=== PATIENT | female | born 1945 | race Hispanic/Latino ===

== ENCOUNTER 2018-11-13 17:03 | Emergency (ER) | payer OTHER ==
[~2018-11-13] VITALS: Ht 160 cm; Wt 99.3 kg
[~2018-11-13 17:03] MED LIST: CALCIUM 600 +1 EAC7 PO; FENOFIBRATE160 MG PO; FISH OIL 1,2001 EACH PO; GLIMEPIRIDE4 MG PO; LISINOPRIL-HCT1 EAC2 PO; METFORMIN HCL500 MG PO; PROGLITAZONE HCL PO; VITAMIN D-32000 UNIT PO
--- OUTSIDE RECORDS SUMMARY | 2018-11-13 17:06 | XMS REPORT | Summary of Care ---
Author Author [facility] [place] Organization [facility] [place] Address Unknown Phone Unavailable Encounter HQ Bienvenido_romy(FIN) [id number] Date(s): 01/16/18 - 01/16/18 [facility] [place] [address] [address] [phone] Encounter Diagnosis Contusion of right knee, initial encounter (Final) - 01/21/18 Contusion of lower back and pelvis, initial encounter (Final) - Sacrococcygeal disorders, not elsewhere classified (Final) - Discharge Disposition: Home or Self Care Attending Physician: Marbin Szymanski DO Referring Physician: Marbin Szymanski DO Vital Signs No data available for this section Problem List No data available for this section Allergies, Adverse Reactions, Alerts No data available for this section Medications No data available for this section Results No data available for this section Immunizations No data available for this section Procedures No data available for this section Social History No data available for this section Assessment and Plan No data available for this section
--- OUTSIDE RECORDS SUMMARY | 2018-11-13 17:06 | XMS REPORT | Continuity of Care Document ---
Author Author [employer] Address Unknown Phone Unavailable Care Team Providers Care Dermatology Teacher Name Role Phone Xelerated Unavailable Unavailable Problems Problem Status Onset Date Classification Date Reported Comments Source Cough 03/22/2018 09/25/2018 [facility] [place] R06.02 - SHORTNESS OF BREATH Active 03/07/2018 [facility] [place] Contusion of lower back and pelvis, subsequent encounter 02/23/2018 09/06/2018 [facility] [place] S30.0XXD - CONTUSION OF LOWER BACK AND P Active 02/07/2018 [facility] [place] Contusion of right knee, initial encounter 01/22/2018 08/06/2018 [facility] [place] R22.32 - LOCALIZED SWELLING, MASS AND L Active 06/27/2017 [facility] [place] DX:569.84 ANGIODYSPLASIA OF INTESTINE / Active 09/11/2012 [place] Contusion of lower back and pelvis, initial encounter 08/06/2018 [facility] [place] Sacrococcygeal disorders, not elsewhere classified 08/06/2018 [facility] [place] Unspecified fall, subsequent encounter 09/06/2018 [facility] [place] Sacroiliitis, not elsewhere classified 09/06/2018 [facility] [place] Trochanteric bursitis, right hip 09/06/2018 [facility] [place] Other intervertebral disc degeneration, lumbosacral region 09/06/2018 [facility] [place] Other intervertebral disc degeneration, lumbar region 09/06/2018 [facility] [place] Shortness of breath 09/25/2018 [facility] [place] Medications No Data Provided for This Section Allergies, Adverse Reactions, Alerts No Known Medication Allergies Immunizations No Data Provided for This Section Results No Data Provided for This Section Pathology Reports No Data Provided for This Section Diagnostic Reports Report Value Date Source Foot series DX Exam: Ankle 3 views DX, Foot series DX, left Reason for Exam: - M79.672 Pain in left foot; left ankle pain Comparison Exam: X-ray 07/15/2018 Discussion: No acute bony abnormalities identified. 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 Hallux valgus deviation is seen with the HVA measuring approximately 34 degrees. Moderate osteoarthritis seen within the medial ankle mortise. No suspicious osteoblastic or osteolytic lesions seen to suggest pathologic involvement. Moderate-sized inferior calcaneal enthesophyte. Impression: 1. No acute bony abnormalities identified. 10/30/2018 JAYANT Esposito Ankle 3 views DX Exam: Ankle 3 views DX, Foot series DX, left Reason for Exam: - M79.672 Pain in left foot; left ankle pain Comparison Exam: X-ray 07/15/2018 Discussion: No acute bony abnormalities identified. 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 Hallux valgus deviation is seen with the HVA measuring approximately 34 degrees. Moderate osteoarthritis seen within the medial ankle mortise. No suspicious osteoblastic or osteolytic lesions seen to suggest pathologic involvement. Moderate-sized inferior calcaneal enthesophyte. Impression: 1. No acute bony abnormalities identified. 10/30/2018 JAYANT Espos[place] Spine lumbar wo contrast MRI Exam: MRI Lumbar spine without contrast Reason for Exam: M54.16 Radiculopathy, lumbar region - M54.16 Radiculopathy, lumbar region Comparison Exam: None Technique: Multiplanar and multisequence imaging was performed of the lumbar spine. T1 and T2 weighted images were obtained without injection of intravenous contrast. Discussion: No fractures or spondylolisthesis seen within the lumbar spine. The conus is located at the T12/L1 vertebral body level. No abnormal signal originating from the spinal cord. Visualized portions of the retroperitoneum are unremarkable. L1/L2: Intervertebral disc is within normal limits. The facet joints and ligamentum flavum are unremarkable. The neuroforamina appear patent. L2/L3: Moderate loss in disc height with cortical endplate erosive changes of L2 and L3. Broad-based posterior disc bulge is seen resulting in indentation of the thecal sac and mild central canal stenosis. Facet joints are unremarkable. These findings are resulting in moderate bilateral neural foraminal stenoses with impingement on the descending L3 nerve roots. L3/L4: Broad-based posterior disc bulge is seen resulting in indentation of the thecal sac and moderate central canal stenosis. Moderate bilateral facet joint arthropathy. Moderate bilateral neural from stenosis with abutment of the descending L4 nerve roots. L4/L5: Intervertebral disc is unremarkable. Advanced bilateral facet joint arthropathy. Mild bilateral neural foraminal stenoses. The exiting and descending nerve roots do not appear impinged. L5/S1: Intervertebral disc is within normal limits. The facet joints and ligamentum flavum are unremarkable. The neuroforamina appear patent. Impression: 1. Multilevel spondylosis as detailed above, most prominent at the L2/L3 level. 09/25/2018 JAYANT Esposito Foot series DX EXAM: Foot series DX HISTORY: - R22.42 Localized swelling, mass and lump, left lower limb; pain and swelling left foot COMPARISON: None 3 views of the left foot. FINDINGS: There is a bunion deformity of the great toe MTP joint with mild hallux valgus and moderate degenerative change. No fracture or dislocation is seen. There is moderate tibiotalar osteophyte formation. There is soft tissue swelling at the ankle. There is a healing nondisplaced fracture of the mid 5th metatarsal. IMPRESSION: Healing nondisplaced 5th metatarsal fracture. Degenerative change with flattening deformity of the great toe MTP joint. Plantar calcaneal spur. 07/15/2018 JAYANT Esposito Chest 2 views DX Exam: Two-view chest x-ray Reason for Exam: - R06.02 Shortness of breath;R05 Cough Comparison Exam: None Discussion: Cardiac silhouette is at the upper limits of normal for size. Both hemidiaphragms well visualized. No pulmonary edema or pleural effusions. No focal lung consolidations. Trachea is midline. No acute bony abnormalities. Impression: 1. No acute cardiopulmonary abnormalities. 03/07/2018 JAYANT Espos[place] Pelvis wo contrast MRI EXAMINATION: MRI of the pelvis without contrast HISTORY: S30.0XXD Contusion of lower back and pelvis, subsequent encounter; posterior pelvic pain/coccydynia status post fall on 01/16/2018; coccygeal fracture COMPARISON: Radiographs dated 01/16/2018 are reviewed. TECHNIQUE: Multiplanar, multisequence magnetic resonance images of the pelvis were obtained without contrast. FINDINGS: Bone: There is focal bone marrow edema and mild cortical offset within the region of the 1st coccygeal segment most consistent with a coccygeal fracture (series 6, images 25 through 27). There is also moderate bilateral sacroiliitis with substantial periarticular bone marrow edema and subcortical sclerosis (series 5, images 13 through 17). There is otherwise normal bone marrow signal intensity throughout the remainder of the visualized lower lumbar spine, sacrum, pelvis, and bilateral proximal femora. Muscles and Tendons: There is mild bilateral common hamstring origin tendinosis. The musculature of the pelvis including the piriformis muscles is normal and symmetric. Soft Tissues: There is mild right greater trochanteric bursitis. The sciatic nerves are normal and symmetric. There is a small sacral Tarlov cyst on the left at the level of S2. The sacral neuroforamina are patent. There is mild edema within the presacral soft tissues. Bilateral Hips: Within each hip, there is no gross intra-articular abnormality on large [id number] imaging. Other: The uterus is surgically absent. Visualized portions of the intraperitoneal pelvis are otherwise unremarkable. Visualized portions of the lower lumbar spine demonstrate L2-L3, L3-L4, and L5-S1 degenerative disc disease. IMPRESSION: 1. Focal bone marrow edema and mild cortical offset within the region of the 1st coccygeal segment most consistent with a coccygeal fracture, especially given the patient's history. There is also mild edema within the adjacent presacral soft tissues. 2. Moderate bilateral sacroiliitis with substantial periarticular bone marrow edema and subcortical sclerosis. 3. Mild right greater trochanteric bursitis. 4. Mild bilateral common hamstring origin tendinosis. 5. Visualized portions of the lower lumbar spine demonstrate L2-L3, L3-L4, and L5- S1 degenerative disc disease. There is also a small sacral Tarlov cyst on the left at the level of S2. 6. Status post hysterectomy. 02/16/2018 JAYANT Espos[facility] Spine coccyx DX EXAM: Spine coccyx DX DATE: 01/16/2018 10:54 AM FOREIGN LAW CONSULTANT . ORDERING PHYSICIAN: Marbin Szymanski DO CLINICAL INDICATION: - contusion cocyx; TECHNIQUE: AP and lateral views of the sacrum and coccyx COMPARISON: Unavailable FINDINGS: There is abrupt anterior angulation of the lower sacrum without definite cortical disruption. The coccyx is unremarkable. Soft tissues are grossly unremarkable. IMPRESSION: Abrupt anterior angulation of the lower sacrum without definite cortical breakthrough suggesting fracture of indeterminate chronicity. If indicated, MR assessment may be considered. 01/16/2018 JAYANT Esposito Knee 1-2 Views unilateral DX Exam: Right knee x-ray, 2 views Reason for Exam: - contusion right knee Comparison Exam: none Discussion: No fractures or dislocations are seen of the right knee. The joint spaces are preserved. No intraosseous lesions. No radiopaque foreign bodies. Impression: 1. No acute bony abnormalities seen within the right knee. 01/16/2018 JAYANT Esposito Chest w/wo contrast MRI CLINICAL HISTORY: R22.32 Localized swelling, mass and lump, left upper limb - R22.32 Localized swelling, mass and lump, left upper limb AGE: 72 years GENDER: Female TECHNIQUE: Multiplanar, multisequence MRI of the sternoclavicular joints was performed before and after IV administration of gadolinium based contrast. COMPARISON: None FINDINGS: Mild degenerative changes in the bilateral sternoclavicular joints, left greater the right. Trace left sternoclavicular joint effusion and synovitis. No evidence of ganglion cyst or mass lesion. Bone marrow signal is within normal limits without evidence of fracture. No bone marrow replacing lesions identified. Visualized portions of the inferior neck and upper thorax are unremarkable. IMPRESSION: Mild degenerative changes in the sternal clavicular joints, left greater then right. No MR correlate for patient's reported palpable mass. 06/28/2017 JAYANT Ashlie Bowel colon air contrast Air-contrast barium enema: COMPARISON: No priors CLINICAL HISTORY: Incomplete colonoscopy, screening for colon cancer. History of radiation therapy to the pelvis FINDINGS: The senior water resources engineer film reveals a nonobstructive bowel gas pattern. No abnormal calcifications or masses are visualized. Moderate amount of retained gas is noted in the colon Air and barium were instilled into the rectum in a retrograde fashion to the level of the cecum. There is reflux noted into the appendix. Evaluation is limited due to retained stool particularly in the descending colon. There is mild narrowing noted in the sigmoid colon near its junction with the descending colon. These changes may be related to spasm or might even reflect changes from prior radiation therapy. Neoplastic process considered less likely but correlation with endoscopy performed earlier in the day is recommended. No obstructing mass lesions are visualized. The colon demonstrates a normal haustral pattern. No significant mucosal abnormality is noted. The presacral space is within normal limits. IMPRESSION: Evaluate mildly limited particularly in the descending colon due to retained stool. Mild narrowing of the sigmoid colon near its junction with the descending colon. Please see discussion above. Fluoroscopy Time: 1.3 minutes SL:13 09/11/2012 [facility] Consultation Notes No Data Provided for This Section Discharge Summaries No Data Provided for This Section History and Physicals No Data Provided for This Section Vital Signs No Data Provided for This Section Encounters Location Location Details Encounter Type Encounter Number Reason For Visit Attending Provider ADM Date DC Date Status Source [facility] Outpatient [id number] DX:569.84 ANGIODYSPLASIA OF INTESTINE / UNABLE TO COMPL PHILIPP BRAY 09/11/2012 Active [facility] [place] [facility] [id number] Darius Christina 06/28/2017 06/29/2017 [facility] [place] [facility] [id number] Marbin Szymanski 01/16/2018 01/17/2018 [facility] [place] [facility] [place] [facility] [id number] Marbin Szymanski 02/16/2018 02/17/2018 [facility] [place] [facility] [place] [facility] [id number] Marbin Szymanski 03/07/2018 03/08/2018 [facility] [place] [facility] [place] [facility] [id number] Marbin Szymanski 07/15/2018 07/16/2018 [facility] [place] [facility] [place] [facility] [id number] Marbin Szymanski 09/25/2018 09/26/2018 [facility] [place] [facility] [place] [facility] [id number] Marbin Szymanski 10/30/2018 10/31/2018 [facility] [place] Procedures No Data Provided for This Section Assessment and Plan No Data Provided for This Section Plan of Care No Data Provided for This Section Social History Social History Date Source No data available for this section 10/31/2018 [facility] [place] Family History No Data Provided for This Section Advance Directives No Data Provided for This Section Functional Status No Data Provided for This Section
--- OUTSIDE RECORDS SUMMARY | 2018-11-13 17:06 | XMS REPORT | Summary of Care ---
Author Author [facility] [place] Organization [facility] [place] Address Unknown Phone Unavailable Encounter HQ Encntr_alimarissa(FIN) [id number] Date(s): 10/30/18 - 10/30/18 [facility] [place] [address] [address] [phone] Discharge Disposition: Home or Self Care Attending [...]
--- OUTSIDE RECORDS SUMMARY | 2018-11-13 17:06 | XMS REPORT | Summary of Care ---
Author Author [facility] [place] Organization [facility] [place] Address Unknown Phone Unavailable Encounter HQ Encntr_alimarissa(FIN) [id number] Date(s): 09/25/18 - 09/25/18 [facility] [place] [address] [phone] Discharge Disposition: Home or Self Care Attending [...]
--- OUTSIDE RECORDS SUMMARY | 2018-11-13 17:06 | XMS REPORT | Summary of Care ---
Author Author [facility] [place] Organization [facility] [place] Address Unknown Phone Unavailable Encounter HQ Ermias(FIN) [id number] Date(s): 02/16/18 - 02/16/18 [facility] [place] [address] [phone] Encounter Diagnosis Contusion of lower back and pelvis, subsequent encounter (Final) - 02/22/18 Unspecified fall, subsequent encounter (Final) - Sacroiliitis, not elsewhere classified (Final) - Trochanteric bursitis, right hip (Final) - Other intervertebral disc degeneration, lumbosacral region (Final) - Other intervertebral disc degeneration, lumbar region (Final) - Discharge Disposition: Home or Self [...]
--- OUTSIDE RECORDS SUMMARY | 2018-11-13 17:06 | XMS REPORT | Summary of Care ---
Author Author [facility] [place] Organization [facility] [place] Address Unknown Phone Unavailable Encounter HQ Encntr_alimarissa(FIN) [id number] Date(s): 07/15/18 - 07/15/18 [facility] [place] [address] [place] [phone] [phone] Discharge Disposition: Home or Self Care Attending [...]
--- OUTSIDE RECORDS SUMMARY | 2018-11-13 17:06 | XMS REPORT | Summary of Care ---
Author Author [facility] [place] Organization [facility] [place] Address Unknown Phone Unavailable Encounter HQ Encntr_romy(FIN) [id number] Date(s): 06/28/17 - 06/28/17 [facility] [place] [address] [place] [phone] [phone] Discharge Disposition: Home or Self Care Attending Physician: Darius Christina MD Vital Signs No data available for this [...]
--- OUTSIDE RECORDS SUMMARY | 2018-11-13 17:06 | XMS REPORT | Summary of Care ---
Author Author [facility] [place] Organization [facility] [place] Address Unknown Phone Unavailable Encounter HQ Encntr_alias(FIN) [id number] Date(s): 03/07/18 - 03/07/18 [facility] [place] [address] [phone] Encounter Diagnosis Cough (Final) - 03/22/18 Shortness of breath (Final) - Discharge Disposition: Home or Self [...]
[2018-11-13 17:48] LABS: BASOPHILS # (AUTO) 0.1 (0.0-0.1); BASOPHILS % 0.6 % (0.0-1.0); EOSINOPHILS # (AUTO) 0.2 (0.0-0.4); EOSINOPHILS % 2.2 % (0.0-6.0); HEMOGLOBIN 12.9 g/dL (12.0-16.0); LYMPHOCYTES # (AUTO) 1.3 (1.0-3.2); LYMPHOCYTES % 15.4 % (18.0-39.1); MEAN CORPUSCULAR HEMOGLOBIN 29.5 pg (28-32); MEAN CORPUSCULAR HGB CONC 32.3 g/dL (31-35); MEAN CORPUSCULAR VOLUME 91.3 fL (81-99); MONOCYTES # (AUTO) 0.6 (0.2-0.8); MONOCYTES % 7.7 % (4.4-11.3); NEUTROPHILS % 73.6 % (38.7-80.0); PLATELET COUNT 275 x10e3/uL (140-360); RED BLOOD COUNT 4.38 x10e6/uL (3.6-5.1); RED CELL DISTRIBUTION WIDTH 15.4 % (11.7-14.4)
[2018-11-13 17:53] LABS: CLARITY,URINE CLOUDY (CLEAR); COLOR,URINE AMBER (YELLOW); LEUKOCYTE ESTERASE ,URINE TRACE (NEGATIVE); NITRITE,URINE NEGATIVE (NEGATIVE); PROTEIN,URINE DIPSTICK 2+ (NEGATIVE); URINE UROBILINOGEN 0.2 mg/dL (0.2 - 1)
[2018-11-13 17:54] LABS: BILIRUBIN,URINE NEGATIVE (NEGATIVE); INR 1.02; KETONES,URINE NEGATIVE (NEGATIVE); PROTHROMBIN TIME 13.9 seconds (11.9-14.5)
[2018-11-13 17:55] LABS: PARTIAL THROMBOPLASTIN TIME 34.6 seconds (23.8-35.5)
[2018-11-13 18:02] LABS: ALANINE AMINOTRANSFERASE 14 IU/L (0-55); ALBUMIN 3.9 g/dL (3.5-5.0); ALBUMIN/GLOBULIN RATIO 1.1 (0.8-2.0); ALKALINE PHOSPHATASE 90 IU/L (40-150); ANION GAP 14.9 mmol/L (8-16); BLOOD UREA NITROGEN 22 mg/dL (7-26); BUN/CREATININE RATIO 28 (6-25); CALCIUM 9.7 mg/dL (8.4-10.2); CARBON DIOXIDE 25 mmol/L (22-29); CHLORIDE 104 mmol/L (98-107); CREATINE KINASE 122 IU/L (29-168); CREATININE, SERUM 0.79 mg/dL (0.57-1.11); EST GLOMERULAR FILTRATION RATE > 60 ML/MIN (60-); GLUCOSE 146 mg/dL (74-118); POTASSIUM 3.9 mmol/L (3.5-5.1); SODIUM 140 mmol/L (136-145)
[2018-11-13] MEDS ORDERED: ONDANSETRON HCL INJ 2MG/ML 2ML 2 MG/ML VIAL IV ONE (18:05)
[2018-11-13] MEDS ORDERED: MORPHINE SULFATE 2 MG/ML SYR 1ML IV ONE (18:05)
[2018-11-13] MEDS ORDERED: SODIUM CHLORIDE 0.9% 1000ML 1,000 ML IV STA (18:05)
[2018-11-13 18:07] LABS: BACTERIA,URINE FEW /HPF; EPITHELIAL CELLS,URINE RARE /LPF; RBC,URINE 21-50 /HPF (0-5); RENAL EPITHELIAL CELLS,URINE RARE
[2018-11-13] MEDS ORDERED: CEFTRIAXONE SOD 1 GM/NS 50 ML 50 ML IV ONE (18:15)
--- NOTE | 2018-11-13 18:17 | NUR ---
PELVIC EXAM AND RECTAL EXAM PERFORMED BY DR FIGUEROA, WITNESSED BY Sabino GOOD RN. TOLERATED WELL. NO SIGNS OF ACUTE DISTRESS NOTED AT THIS TIME.
--- NOTE | 2018-11-13 18:54 | Diagnostic Imaging Report ---
Examination: Single AP view of the chest. COMPARISON: None. INDICATION: Blood in urine DISCUSSION: Lines/tubes: None. Lungs: The lungs are well inflated and clear. No pneumonia or pulmonary edema. Pleura: No pleural effusion or pneumothorax. Heart and mediastinum: The heart and the mediastinum are unremarkable. Bones and soft tissues: No acute bony abnormalities. IMPRESSION: 1. No acute cardiopulmonary abnormalities. Signed by: Dr. Jack Elam M.D. on 11/13/2018 6:51 PM
--- NOTE | 2018-11-13 19:00 | Diagnostic Imaging Report ---
EXAMINATION: CT of the abdomen and pelvis with contrast. TECHNIQUE: Helical CT images of the abdomen and pelvis were performed from the lung bases to the lesser trochanters after the intravenous administration of 100 cc of Isovue 300 and the oral administration of none. Coronal and sagittal reformatted images were obtained.Dose modulation, iterative reconstruction, and/or weight based adjustment of the mA/kV was utilized to reduce the radiation dose to as low as reasonably achievable. COMPARISON: None. CLINICAL HISTORY:Bleeding DISCUSSION: ABDOMEN/PELVIS: LOWER THORAX:Unremarkable. HEPATOBILIARY: No enhancing lesions. No intra-or extrahepatic biliary ductal dilation. Cholecystectomy clips. [place] effect in the common bile duct. SPLEEN: No splenomegaly. PANCREAS: No focal masses or ductal dilatation. ADRENALS: No adrenal nodules. KIDNEYS/URETERS: No hydronephrosis, stones, or solid mass lesions. PELVIC ORGANS/BLADDER: Hysterectomy. Bladder normal. PERITONEUM/RETROPERITONEUM: No free air or fluid. LYMPH NODES: No intra-abdominal, retroperitoneal, pelvic or inguinal lymphadenopathy. VESSELS: Unremarkable. GI TRACT: No obstruction. The appendix is normal. BONES AND SOFT TISSUE: No bony destructive lesions. Sacroiliac joint degenerative arthrosis. Lower lumbar spondyloarthropathy. IMPRESSION: No acute CT finding. Signed by: Dr. Jack Elam M.D. on 11/13/2018 6:56 PM
[2018-11-13 20:20] VITALS: BP 146/61
[2018-11-13] MEDS ORDERED: IOPAMIDOL 370 MG/ML 200 ML INFUS..BTL INJ ONE (22:26)
[2018-11-13] MEDS ORDERED: SODIUM CHLORIDE 0.9% 50ML 50 ML ONE (22:26)
== END 2018-11-13 20:34 | disposition home or self-care (01) ==
LOC: ER 17:03
DX: R31.29 Other microscopic hematuria (principal); K92.1 Melena; I10 Essential (primary) hypertension; E11.9 Type 2 diabetes mellitus without complications; Z85.42 Personal history of malignant neoplasm of other parts of uterus
CPT/HCPCS: 36415; 71045; 74177; 80053; 81001; 82550; 82553; 83690; 83735; 83880; 84484; 85025; 85610; 85730; 87086; 93005; 99284; J0696; J2270; J2405; J7030; Q9967

== ENCOUNTER → 2020-02-17 | Outpatient (CLI) | payer MEDICARE | LOC: CT 09:19 | PROVIDERS: ATTEND Family Medicine | DX: R22.1 Localized swelling, mass and lump, neck (principal); S46.201A Unspecified injury of muscle, fascia and tendon of other parts of biceps, right arm, initial encounter ==

== ENCOUNTER 2022-08-11 13:24 | Emergency (ER) | payer MEDICARE ==
[~2022-08-11] VITALS: Ht 160 cm; Wt 84.8 kg
[~2022-08-11 13:24] MED LIST changes: +AZITHROMYCIN250 MG PO; +PREDNISONE20 MG PO; +VENTOLIN HFA18 GM INH
[2022-08-11 13:43] VITALS: O2SAT 98
== END 2022-08-11 13:51 | disposition home or self-care (01) ==
LOC: ER 13:34
DX: R23.3 Spontaneous ecchymoses (principal); I10 Essential (primary) hypertension; E11.65 Type 2 diabetes mellitus with hyperglycemia; Z85.42 Personal history of malignant neoplasm of other parts of uterus
CPT/HCPCS: 36415; 82948; 99282

== ENCOUNTER 2024-03-15 19:43 | Emergency (ER) | payer MEDICARE ==
[~2024-03-15] VITALS: Ht 160 cm; Wt 81.2 kg
[2024-03-15 19:49] VITALS: PULSE 84; RESP 19; TEMP 98.3
[2024-03-15 20:09] LABS: BASOPHILS % 0.3 % (0.0-1.0); EOSINOPHILS # (AUTO) 0.2 (0.0-0.4); EOSINOPHILS % 2.4 % (0.0-6.0); HEMATOCRIT 45.4 % (34.2-44.1); HEMOGLOBIN 13.7 g/dL (12.0-16.0); LYMPHOCYTES # (AUTO) 1.1 (1.0-3.2); LYMPHOCYTES % 12.9 % (18.0-39.1); MEAN CORPUSCULAR HEMOGLOBIN 29.7 pg (28-32); MEAN CORPUSCULAR HGB CONC 30.2 g/dL (31-35); MEAN CORPUSCULAR VOLUME 98.5 fL (81-99); MONOCYTES # (AUTO) 0.7 (0.2-0.8); MONOCYTES % 8.5 % (4.4-11.3); NEUTROPHILS # (AUTO) 6.6 (2.1-6.9); NEUTROPHILS % 75.7 % (38.7-80.0); PLATELET COUNT 185 x10e3/uL (140-360); RED BLOOD COUNT 4.61 x10e6/uL (3.6-5.1); RED CELL DISTRIBUTION WIDTH 14.4 % (11.7-14.4); WHITE BLOOD COUNT 8.68 x10e3/uL (4.8-10.8)
[2024-03-15] MEDS: Vancomycin IV 1 GM in SODIUM CHLORIDE 0.9% 250ML 250 ML IV ONE (20:18)
[2024-03-15 20:27] LABS: ALBUMIN 3.5 g/dL (3.5-5.0); ALBUMIN/GLOBULIN RATIO 0.9 (0.8-2.0); ANION GAP 14.6 mmol/L (8-16); BILIRUBIN,TOTAL 0.3 mg/dL (0.2-1.2); CALCIUM 9.7 mg/dL (8.4-10.2); CREATININE, SERUM 0.83 mg/dL (0.57-1.11); POTASSIUM 3.6 mmol/L (3.5-5.1); TOTAL PROTEIN 7.3 g/dL (6.5-8.1)
[2024-03-15] MEDS ORDERED: HYDRALAZINE HCL 25 MG TAB PO ONE (22:15)
[2024-03-15] MEDS ORDERED: CIPRO500 MG PO (22:34)
[2024-03-15] MEDS ORDERED: ONDANSETRON ODT4 MG SL (22:34)
[2024-03-15] MEDS ORDERED: DOXYCYCLINE HY100 MG PO (22:34)
[2024-03-16 00:38] VITALS: BP 129/68; PULSE 74; RESP 18; TEMP 98.3; O2SAT 98
== END 2024-03-15 22:41 | disposition home or self-care (01) ==
LOC: ER 19:47
DX: E11.65 Type 2 diabetes mellitus with hyperglycemia (principal); E11.621 Type 2 diabetes mellitus with foot ulcer; I10 Essential (primary) hypertension; E78.5 Hyperlipidemia, unspecified; I25.10 Atherosclerotic heart disease of native coronary artery without angina pectoris; M54.9 Dorsalgia, unspecified; G89.29 Other chronic pain; Z85.42 Personal history of malignant neoplasm of other parts of uterus; Z95.810 Presence of automatic (implantable) cardiac defibrillator
CPT/HCPCS: 36415; 73630; 80053; 85025; 87040; 99283; J2543; J3370; J7050